=== PATIENT | male | born 1960 | race Caucasian/White ===

== ENCOUNTER 2017-08-29 11:17 | Observation (INO) | payer OTHER ==
[2017-08-23 15:27] LABS: BASOPHILS % (AUTO) 0.1 % (0-1); EOSINOPHILS # (AUTO) 0.2 X10'3 (0-0.9); EOSINOPHILS % (AUTO) 2.1 % (0-6); LYMPHOCYTES # (AUTO) 1.6 X10'3 (1.1-4.8); LYMPHOCYTES % (AUTO) 16.8 % (21-51); MEAN CORPUSCULAR HEMOGLOBIN 29.2 PG (27.0-31.0); MEAN CORPUSCULAR HGB CONC 33.8 % (33.0-36.5); MEAN CORPUSCULAR VOLUME 86.4 FL (78-98); MEAN PLATELET VOLUME 7.6 FL (7.4-10.4); MONOCYTES # (AUTO) 0.7 X10'3 (0-0.9); MONOCYTES % (AUTO) 7.8 % (2-12); NEUTROPHILS # (AUTO) 6.9 X10'3 (1.8-7.7); NEUTROPHILS % (AUTO) 73.2 % (42-75); PRE OP HEMATOCRIT 43.7 % (42.0-52.0); PRE OP HEMOGLOBIN 14.8 g/dL (14.0-17.9); PRE OP PLATELET COUNT 262 X10'3 (140-440); RED BLOOD COUNT 5.06 X10'6 (4.70-6.10); RED CELL DISTRIBUTION WIDTH 15.5 % (11.5-14.5)
[2017-08-23 15:55] LABS: ALBUMIN 3.7 G/DL (3.4-5.0); ALBUMIN/GLOBULIN RATIO 0.9 (1.1-1.5); ALKALINE PHOSPHATASE 89 IU/L (46-116); BLOOD UREA NITROGEN 15 MG/DL (7-18); CHLORIDE 104 MMOL/L (99-107); PRE OP ALT 44 U/L (30-65); PRE OP ANION GAP 6 (8-16); PRE OP AST 16 U/L (10-37); PRE OP BILIRUB, TOTAL 0.4 MG/DL (0.0-1.0); PRE OP GLUCOSE 97 MG/DL (70-104); PRE OP POTASSIUM 4.3 MMOL/L (3.4-5.1); PRE OP SODIUM 138 MMOL/L (135-145); TOTAL CARBON DIOXIDE 28.2 MMOL/L (24-32); TOTAL PROTEIN 7.7 G/DL (6.4-8.2); eGFR 78 ML/MIN
[~2017-08-29] VITALS: Ht 177.8 cm; Wt 173.5 kg
[2017-08-29] VITALS (27 sets, daily range): BP systolic 81–131; BP diastolic 41–77
[~2017-08-29 11:17] MED LIST: DOCUMENT DATE & TIME OF BETA-BLOCKER PO ONE; HYDR-565 PO; LISI40TA4 PO; METO-539 PO; ROSU5TAB PO; ceFAZolin inj. 3,000 MG in normal saline 100ml IV soln 100 ML IV ONE; famotidine 20mg tablet PO ONE; ringers solution, lacted 1,000 ML IV SCH
[2017-08-29] MEDS ORDERED: BUPIVAcaine/PF 2.5 mg/ml (0.25%) 30ml vial ONE (13:49)
[2017-08-29] MEDS ORDERED: midazolam 2 mg/2 ml injection ONE (14:13)
[2017-08-29] MEDS ORDERED: fentaNYL/PF 50MCG/1 ML 2ML syringe ONE (14:32)
[2017-08-29] MEDS ORDERED: propofol inj 20 ML IV ONE ×2 (14:41)
[2017-08-29] MEDS ORDERED: ondansetron/PF 4mg/2ml inj ONE (14:58)
[2017-08-29] MEDS ORDERED: ringers solution, lacted 1,000 ML IV SCH (15:03)
[2017-08-29] MEDS ORDERED: meperidine/PF 25mg/ml syringe IV PRN ×2 (15:05)
[2017-08-29] MEDS ORDERED: proCHLORperazine 10 MG/2 ml inj IV PRN (15:05)
[2017-08-29] MEDS ORDERED: ketorolac trometh. 30mg/ml inj. IV ONE (15:05)
[2017-08-29] MEDS ORDERED: meperidine/PF 25mg/ml syringe IV ONE (15:05)
[2017-08-29] MEDS ORDERED: acetaminophen 1,000mg/100ml IV 100 ML IV PRN (15:05)
[2017-08-29] MEDS ORDERED: ondansetron/PF 4mg/2ml inj IV PRN (15:05)
[2017-08-29] MEDS ORDERED: HYDROcodone/acetaminophen 10/325mg tab PO PRN (19:55)
[2017-08-29] MEDS ORDERED: metoprolol succinate 25mg (24-HOUR) SR. Tablet PO SCH (20:00)
[2017-08-29] MEDS ORDERED: atorvastatin 20mg tablet PO SCH (21:00)
[2017-08-29] MEDS ORDERED: lisinopril 10 MG tablet PO SCH (21:00)
== END 2017-08-29 21:17 | disposition home or self-care (01) ==
LOC: PAS 11:17 → ORTHO 4S 18:50
PROVIDERS: ADMIT Orthopaedic Surgery; ATTEND Orthopaedic Surgery
DX: S83.242A Other tear of medial meniscus, current injury, left knee, initial encounter (principal); S83.282A Other tear of lateral meniscus, current injury, left knee, initial encounter; X58.XXXA Exposure to other specified factors, initial encounter; Y93.89 Activity, other specified; Y92.89 Other specified places as the place of occurrence of the external cause; Y99.8 Other external cause status
CPT/HCPCS: 29881; 36415; 80053; 85025; 96374; 96375; A6258; A6449; G0378; J0131; J0690; J1885; J2250; J2405; J2704; J3010; J3490; J7030; J7120; A7000

== ENCOUNTER 2019-06-25 09:02 | Inpatient (IN) | payer OTHER ==
[2019-06-23 10:47] LABS: BASOPHILS % (AUTO) 0.7 % (0-1); EOSINOPHILS # (AUTO) 0.2 X10'3 (0-0.9); EOSINOPHILS % (AUTO) 3.5 % (0-6); LYMPHOCYTES # (AUTO) 1.5 X10'3 (1.1-4.8); LYMPHOCYTES % (AUTO) 22.4 % (21-51); MEAN CORPUSCULAR HEMOGLOBIN 30.9 PG (27.0-31.0); MEAN CORPUSCULAR HGB CONC 34.6 g/dL (33.0-36.5); MEAN CORPUSCULAR VOLUME 89.3 FL (78-98); MEAN PLATELET VOLUME 7.1 FL (7.4-10.4); MONOCYTES # (AUTO) 0.5 X10'3 (0-0.9); NEUTROPHILS # (AUTO) 4.3 X10'3 (1.8-7.7); NEUTROPHILS % (AUTO) 66.4 % (42-75); PRE OP HEMATOCRIT 42.4 % (42.0-52.0); PRE OP HEMOGLOBIN 14.7 g/dL (14.0-17.9); PRE OP PLATELET COUNT 217 X10'3 (140-440); RED BLOOD COUNT 4.75 X10'6 (4.70-6.10); RED CELL DISTRIBUTION WIDTH 14.7 % (11.5-14.5)
[2019-06-23 11:03] LABS: ALBUMIN 3.7 G/DL (3.4-5.0); ALBUMIN/GLOBULIN RATIO 1.1 (1.1-1.5); ALKALINE PHOSPHATASE 79 IU/L (46-116); BLOOD UREA NITROGEN 23 MG/DL (7-18); BUN/CREATININE RATIO 29.9 (5.4-32.0); CALCIUM 9.2 MG/DL (8.5-10.1); CHLORIDE 106 MMOL/L (99-107); CREATININE 0.77 MG/DL (0.60-1.10); PRE OP ALT 39 U/L (30-65); PRE OP ANION GAP 6 (8-16); PRE OP AST 15 U/L (10-37); PRE OP BILIRUB, TOTAL 0.4 MG/DL (0.0-1.0); PRE OP GLUCOSE 96 MG/DL (70-104); PRE OP POTASSIUM 4.3 MMOL/L (3.4-5.1); PRE OP SODIUM 141 MMOL/L (135-145); TOTAL CARBON DIOXIDE 28.9 MMOL/L (24-32); TOTAL PROTEIN 7.2 G/DL (6.4-8.2); eGFR > 90 ML/MIN
[2019-06-25] VITALS (15 sets, daily range): BP systolic 101–150; BP diastolic 52–97
[~2019-06-25] VITALS: Ht 172.7 cm; Wt 125.6 kg
[~2019-06-25 09:02] MED LIST changes: +ACET-2615 PO; +ASPI-611 PO; +ATOR20TA66 PO; +DICL-182 PO; -HYDR-565 PO; +IBUP-1984 PO; -ROSU5TAB PO; +ZOLP10TA5 PO; +ceFAZolin 1GM/D5W- ADD-VANTAGE 50 ML IV ONE; -ceFAZolin inj. 3,000 MG in normal saline 100ml IV soln 100 ML IV ONE; +cefazolin/dext.iso 2gm/50ml 50 ML IV ONE; +vancomycin inj 1,500 MG in normal saline 300ml IV soln IV ONE
[2019-06-25] MEDS ORDERED: ringers solution, lacted 1,000 ML IV SCH (09:53)
[2019-06-25] MEDS ORDERED: ondansetron/PF 4mg/2ml inj IV PRN ×2 (09:55→14:05)
[2019-06-25] MEDS ORDERED: proCHLORperazine 10 MG/2 ml inj IV PRN (09:55)
[2019-06-25] MEDS ORDERED: meperidine/PF 25mg/ml syringe IV PRN ×3 (09:55)
[2019-06-25] MEDS ORDERED: morphine 4 MG/ML inj SYRINge IV PRN ×2 (09:55)
[2019-06-25] MEDS ORDERED: epiNEPHrine 1 mg/ml inj ONE (10:34)
[2019-06-25] MEDS ORDERED: morphine 10mg/ml inj. ONE (10:34)
[2019-06-25] MEDS ORDERED: ceFAZolin 1000mg inj ONE (10:34)
[2019-06-25] MEDS ORDERED: ketorolac trometh. 30mg/ml inj. ONE (10:34)
[2019-06-25] MEDS ORDERED: Thrombin (Bovine) 5,000 unit vial TP ONE (10:35)
[2019-06-25] MEDS ORDERED: ROPIVAcaine 0.5% (5mg/ml) 30ml vial ONE ×2 (10:35→13:39)
[2019-06-25] MEDS ORDERED: vancomycin 1,000mg inj ONE (10:35)
[2019-06-25] MEDS ORDERED: tranexamic acid inj. 1,000 MG in normal saline 100 ML IV ONE (10:36)
[2019-06-25] MEDS ORDERED: MIDAZolam 1mg/ml 10ml vial ONE (11:06)
[2019-06-25] MEDS ORDERED: fentaNYL/PF 50MCG/1 ML 2ML syringe ONE (11:07)
[2019-06-25] MEDS ORDERED: tetracaine 1% (10mg/ml) pres. free inj. ONE (11:08)
[2019-06-25] MEDS ORDERED: mineral oil 10ml sterile, topical TP ONE (11:35)
[2019-06-25] MEDS ORDERED: LIDOcaine 1%/PF 5ML 10 MG/ML VIAL ONE (11:46)
[2019-06-25] MEDS ORDERED: propofol inj 20 ML IV ONE (11:46)
[2019-06-25] MEDS ORDERED: calcium chloride 100 MG/1 ML inj IV ONE (12:49)
[2019-06-25] MEDS ORDERED: TRANEXAMIC ACID 1 GM IN NACL,ISO-OS 100 ML IV ONE (13:00)
[2019-06-25] MEDS ORDERED: dexamethasone sod phosphate 4mg/ml inj. ONE (13:39)
[2019-06-25] MEDS ORDERED: diphenhydrAMINE 25mg capsule PO PRN ×2 (14:05)
[2019-06-25] MEDS ORDERED: acetaminophen 325mg tablet PO PRN (14:05)
[2019-06-25] MEDS ORDERED: bisacodyl 10mg suppository rectal RC PRN (14:05)
[2019-06-25] MEDS ORDERED: oxyCODONE IR 5mg (immed. release) tablet PO PRN (14:05)
[2019-06-25] MEDS ORDERED: magnesium hydroxide 30ml (MOM) UD suspension PO PRN (14:05)
[2019-06-25] MEDS ORDERED: HYDROmorphone 1 mg/ml syringe IV PRN (14:05)
[2019-06-25] MEDS ORDERED: HYDROmorphone inj. 0.5 MG/0.5 ML DISP.SYRIN IV PRN (14:05)
--- NOTE | 2019-06-25 14:40 | NUR ---
Received from OR via BED , accompanied by Anesthesiologist DR LOCKWOOD and report given by Anesthesiolgist. PATIENT WAKING UP, DENIES PAIN, V/S WNL, NEUROVASCULAR CHECKS INTACT, 18G PIV LUE , CONNOR DRESSING TO LEFT KNEE CDI W/ COLD POWDER PACK AND W/ SCD ON AND ON QUE BALL AT 4ML/HR TO LLE. F/C DRAINING CLEAR YELLOW URINE. SENSATION T-11.
[2019-06-25] MEDS: ROPIVAcaine 0.2%/PF PAIN PUMP 550 ML ADDCANAL SCH (14:43)
--- NOTE | 2019-06-25 15:30 | NUR ---
PATIENT A&OX4, DENIES PAIN, V/S WNL, NEUROVASCULAR CHECKS INTACT, 18G PIV LUE , CONNOR DRESSING TO LEFT KNEE CDI W/ COLD POWDER PACK AND W/ SCD ON AND ON QUE BALL AT 4ML/HR TO LLE. F/C DRAINING CLEAR YELLOW URINE. SENSATION T-11. TELE ON. PATIENT TAKEN TO ORTHO WITH ALL BELONGINGS AND HOOKED UP TO MONITORS IN ROOM AND REPORT GIVEN TO DENSITOMETRIST WHO HAS TAKEN OVER PATIENT CARE.
[2019-06-25] MEDS: ceFAZolin 1GM/D5W- ADD-VANTAGE 50 ML IV SCH ×2 (16:52→23:51)
[2019-06-25] MEDS ORDERED: tranexamic acid inj. 1,000 MG in normal saline 100ml IV soln 100 ML IV ONE (17:00)
--- NOTE | 2019-06-25 18:19 | NUR ---
Problems reprioritized. Patient report given, questions answered & plan of care reviewed with Ingrid Birch RN.
[2019-06-25] MEDS ORDERED: LISI10TA4 PO (19:32)
[2019-06-25] MEDS: acetaminophen 325mg tablet PO SCH (19:53)
[2019-06-25] MEDS: potassium cl 20mEq in 1/2 NS 1,000 ML IV SCH ×2 (19:53→21:45)
[2019-06-25] MEDS: metoprolol tartrate 12.5mg (1/2 tablet) PO SCH (19:53)
[2019-06-25] MEDS: Diclofenac Sodium 75 MG PO SCH (20:00)
[2019-06-25] MEDS ORDERED: vancomycin/NS 1 GM ADD-VANTAGE 250 ML IV SCH (20:00)
[2019-06-25] MEDS: sennosides 8.6mg tablet PO SCH (20:43)
[2019-06-25] MEDS: atorvastatin 20mg tablet PO SCH (20:43)
[2019-06-25] MEDS: gabapentin 300mg capsule PO SCH (20:44)
[2019-06-25] MEDS: zolpidem 5mg tablet PO SCH (21:57)
[2019-06-26] VITALS (7 sets, daily range): BP systolic 117–136; BP diastolic 59–75
[2019-06-26] MEDS: acetaminophen 325mg tablet PO SCH ×4 (02:11→20:31)
[2019-06-26] MEDS: oxyCODONE IR 5mg (immed. release) tablet PO PRN ×4 (02:20→14:39)
[2019-06-26] MEDS: potassium cl 20mEq in 1/2 NS 1,000 ML IV SCH ×3 (05:29→22:02)
[2019-06-26 05:59] LABS: BASOPHILS % (AUTO) 0.2 % (0-1); EOSINOPHILS % (AUTO) 0.2 % (0-6); HEMOGLOBIN 13.7 g/dl (14.0-17.9); LYMPHOCYTES # (AUTO) 0.9 X10'3 (1.1-4.8); LYMPHOCYTES % (AUTO) 8.1 % (21-51); MEAN CORPUSCULAR HEMOGLOBIN 31.2 PG (27.0-31.0); MEAN CORPUSCULAR VOLUME 89.1 FL (78-98); MEAN PLATELET VOLUME 7.7 FL (7.4-10.4); MONOCYTES # (AUTO) 0.8 X10'3 (0-0.9); MONOCYTES % (AUTO) 6.9 % (2-12); NEUTROPHILS # (AUTO) 9.2 X10'3 (1.8-7.7); NEUTROPHILS % (AUTO) 84.6 % (42-75); PLATELET COUNT 175 X10'3 (140-440); RED BLOOD COUNT 4.37 X10'6 (4.70-6.10); RED CELL DISTRIBUTION WIDTH 14.1 % (11.5-14.5); WHITE BLOOD COUNT 10.9 X10'3 (4.5-11.0)
--- NOTE | 2019-06-26 06:06 | NUR ---
Report given to Libertad PATE.
[2019-06-26 06:10] LABS: ANION GAP 7 (8-16); CHLORIDE 105 MMOL/L (99-107); POTASSIUM 4.4 MMOL/L (3.5-5.1); SODIUM 137 MMOL/L (135-145); TOTAL CARBON DIOXIDE 24.6 MMOL/L (24-32)
--- NOTE | 2019-06-26 06:27 | NUR ---
RECEIVED REPORT FROM HERLINDA SCHMID
--- NOTE | 2019-06-26 06:52 | NUR ---
rEMOVE Brown CATH PER MD ORDER
[2019-06-26] MEDS: Diclofenac Sodium 75 MG PO SCH ×2 (08:00→20:00)
[2019-06-26] MEDS: gabapentin 300mg capsule PO SCH ×3 (08:07→20:32)
[2019-06-26] MEDS: metoprolol tartrate 12.5mg (1/2 tablet) PO SCH ×2 (08:07→20:32)
[2019-06-26] MEDS: lisinopril 10 MG tablet PO SCH (08:09)
[2019-06-26] MEDS: enoxaparin 40mg/0.4ml syringe SQ SCH (08:10)
[2019-06-26] MEDS ORDERED: GABA300C PO (09:11)
--- NOTE | 2019-06-26 11:43 | NUR ---
Student Medication Administration: For this medication-pass time frame, all medication were reviewed, dispensed, administered and documented per hospital policy by Ren[facility]. Student documentation: I have reviewed all interventions, assessments performed and documented by [facility]. Addendum: 06/26/19 at 1145 by Laura ACOSTA RN correction to Student Juan Quinn ([facility])
--- NOTE | 2019-06-26 18:04 | NUR ---
gave report to prudence, rn
--- NOTE | 2019-06-26 19:00 | NUR ---
Patient in room ORTHO 4024. I have received report from Libertad PATE and had the opportunity to ask questions and assume patient care. patient is with his daughter in the room.
[2019-06-26] MEDS: zolpidem 5mg tablet PO SCH (20:29)
[2019-06-26] MEDS: sennosides 8.6mg tablet PO SCH (20:30)
[2019-06-26] MEDS: atorvastatin 20mg tablet PO SCH (20:30)
[2019-06-26] MEDS: celeCOXIB 100mg capsule PO SCH (20:30)
[2019-06-27] MEDS: oxyCODONE IR 5mg (immed. release) tablet PO PRN ×3 (00:35→09:13)
[2019-06-27] MEDS: acetaminophen 325mg tablet PO SCH ×3 (02:18→14:00)
[2019-06-27 02:57] VITALS: BP 141/62
[2019-06-27 05:00] VITALS: BP 124/51
[2019-06-27 06:02] LABS: BASOPHILS % (AUTO) 0.2 % (0-1); EOSINOPHILS # (AUTO) 0.1 X10'3 (0-0.9); EOSINOPHILS % (AUTO) 0.9 % (0-6); HEMATOCRIT 36.5 % (42.0-52.0); HEMOGLOBIN 12.6 g/dl (14.0-17.9); LYMPHOCYTES # (AUTO) 1.1 X10'3 (1.1-4.8); LYMPHOCYTES % (AUTO) 11.5 % (21-51); MEAN CORPUSCULAR HEMOGLOBIN 30.7 PG (27.0-31.0); MEAN CORPUSCULAR HGB CONC 34.5 g/dL (33.0-36.5); MEAN CORPUSCULAR VOLUME 88.9 FL (78-98); MEAN PLATELET VOLUME 7.4 FL (7.4-10.4); MONOCYTES # (AUTO) 0.9 X10'3 (0-0.9); MONOCYTES % (AUTO) 9.8 % (2-12); NEUTROPHILS # (AUTO) 7.3 X10'3 (1.8-7.7); NEUTROPHILS % (AUTO) 77.6 % (42-75); PLATELET COUNT 181 X10'3 (140-440); RED BLOOD COUNT 4.11 X10'6 (4.70-6.10); RED CELL DISTRIBUTION WIDTH 14.8 % (11.5-14.5); WHITE BLOOD COUNT 9.5 X10'3 (4.5-11.0)
[2019-06-27] MEDS: potassium cl 20mEq in 1/2 NS 1,000 ML IV SCH (06:02)
--- NOTE | 2019-06-27 06:28 | NUR ---
Problems reprioritized. Patient report given, questions answered & plan of care reviewed with Brandi PATE. Patient has been resting well and did request pain meds and the meds were given as ordered.
[2019-06-27] MEDS: Diclofenac Sodium 75 MG PO SCH (08:00)
[2019-06-27] MEDS: metoprolol tartrate 12.5mg (1/2 tablet) PO SCH (09:12)
[2019-06-27] MEDS: celeCOXIB 100mg capsule PO SCH (09:12)
[2019-06-27] MEDS: gabapentin 300mg capsule PO SCH ×2 (09:12→14:19)
[2019-06-27] MEDS: lisinopril 10 MG tablet PO SCH (09:13)
[2019-06-27] MEDS: enoxaparin 40mg/0.4ml syringe SQ SCH (09:14)
--- NOTE | 2019-06-27 09:15 | NUR ---
pt was able to inject himself with lovanox successfully
[2019-06-27 10:00] VITALS: BP 144/78
--- NOTE | 2019-06-27 10:34 | NUR ---
SPOKE TO DR DE LA PAZ, INFORMED HIM THAT ON Q PUMP APPEARS TO BE LEAKING, I WILL REMOVE IT. PAIN UNCONTROLLED, WILL TRIAL A DOSE OF NORCO WHICH IS PT'S HOME MED
[2019-06-27] MEDS ORDERED: HYDROcodone/acetaminophen 10/325mg tab PO ONE (10:35)
[2019-06-27] MEDS ORDERED: fentaNYL/PF 50MCG/1 ML 2ML syringe ONE (12:50)
[2019-06-27] MEDS ORDERED: MIDAZolam 5mg/5ml vial ONE (12:50)
--- NOTE | 2019-06-27 12:54 | NUR ---
report given to Alicia in recovery
[2019-06-27] MEDS ORDERED: LIDOcaine 2% (20mg/ml) 5ml vial ONE (13:00)
[2019-06-27] MEDS ORDERED: ROPIVAcaine 0.5% (5mg/ml) 30ml vial ONE (13:00)
--- NOTE | 2019-06-27 13:00 | NUR ---
TO PACU ROOM 2 IN BED FOR ON-Q CATHETER PLACEMENT BY DR. CORTES. DR. CORTES MONITORED ECG, SPO2, BP PLACED ON 10L O2 VIA MASK.
--- NOTE | 2019-06-27 13:30 | NUR ---
PT HAD REINSERTION OF ONQ PAIN PUMP BY DR CORTES. VS WNL, PAIN DECREASED, PUMP TUBING SECURED AND NOW AWAITS THE PAIN PUMP PORTION FROM PHARMACY. AWAKE IN NO DISTRESS,
--- NOTE | 2019-06-27 13:30 | NUR ---
110/60 90 18 99% ON ROOM AIR.
--- NOTE | 2019-06-27 13:45 | NUR ---
AWAKE VS WNL, DSG DI, PAIN MINIMAL, GOOD PULSES FEET. TAKEN BACK TO ORTHO STILL AWAITING PHARMACY TO BRING UP ONQ PUMP. PT SEEMS HAPPY.
--- NOTE | 2019-06-27 13:45 | NUR ---
106/52 94, 15, 98% ON ROOM AIR.
[2019-06-27] MEDS ORDERED: acetaminophen 325mg tablet PO PRN (14:05)
[2019-06-27] MEDS: ROPIVAcaine 0.2%/PF PAIN PUMP 550 ML ADDCANAL SCH (14:26)
== END 2019-06-27 15:00 | disposition home health service (06) | DRG 470 ==
LOC: PAS IN 09:02 → EDSTATUS 11:00 → ORTHO 4S 15:45
PROVIDERS: ADMIT Orthopaedic Surgery; ATTEND Orthopaedic Surgery
PROC: 8E0YXCZ Robotic Assisted Procedure of Lower Extremity (ICD-10-PCS; 2019-06-25)
PROC: 3E0T3BZ Introduction of Anesthetic Agent into Peripheral Nerves and Plexi, Percutaneous Approach (ICD-10-PCS; 2019-06-25)
PROC: 0SRD069 Replacement of Left Knee Joint with Oxidized Zirconium on Polyethylene Synthetic Substitute, Cemented, Open Approach (ICD-10-PCS; principal; 2019-06-25 10:50)
DX: M17.12 Unilateral primary osteoarthritis, left knee (principal); D62 Acute posthemorrhagic anemia; E78.5 Hyperlipidemia, unspecified; I10 Essential (primary) hypertension; G47.30 Sleep apnea, unspecified
CPT/HCPCS: Z7506; Z7508; 36415; 80051; 80053; 82948; 85025; 87081; 97110; 97116; 97161; 97530; A4215; A6258; A6454; A7000; C1713; C1758; C1776; G0378; J0171; J0690; J1100; J1170; J1650; J1885; J2001; J2250; J2270; J2704; J2795; J3010; J3370; J3480; J7120

== ENCOUNTER 2024-06-17 11:17 | Outpatient (CLI) | payer OTHER ==
[~2024-06-17 11:17] MED LIST changes: -DICL-182 PO; -DOCUMENT DATE & TIME OF BETA-BLOCKER PO ONE; +GABA300C PO; +LISI10TA27 PO; -LISI40TA4 PO; -ceFAZolin 1GM/D5W- ADD-VANTAGE 50 ML IV ONE; -cefazolin/dext.iso 2gm/50ml 50 ML IV ONE; -famotidine 20mg tablet PO ONE; -ringers solution, lacted 1,000 ML IV SCH; -vancomycin inj 1,500 MG in normal saline 300ml IV soln IV ONE
== END 2024-06-17 23:59 | disposition home or self-care (01) ==
LOC: CARD DIAG 11:17
PROVIDERS: ATTEND Chiropractor
DX: I08.8 Other rheumatic multiple valve diseases (principal); I25.10 Atherosclerotic heart disease of native coronary artery without angina pectoris; I31.39 Other pericardial effusion (noninflammatory); E78.5 Hyperlipidemia, unspecified; G47.30 Sleep apnea, unspecified; Z95.1 Presence of aortocoronary bypass graft
CPT/HCPCS: 93306